=== PATIENT | female | born 1960 | race Caucasian/White ===

== ENCOUNTER 2017-05-27 11:21 | Emergency (ER) | payer OTHER ==
[2017-05-27 11:33] VITALS: BMI 35.5
--- NOTE | 2017-05-27 11:41 | PDOC ---
*Physical Exam - Vital Signs Last Vital Signs Temp Pulse Resp BP Pulse Ox 97.9 F 85 18 143/98 98 05/27/17 11:31 05/27/17 11:31 05/27/17 11:31 05/27/17 11:31 05/27/17 11:31 - Physical Exam Comments: 05/27/17 11:41 Pt seen by the Advanced Practice Provider under my direct supervision Pt interviewed and examined Ancillary studies reviewed I agree with plan as outlined by the Advanced Practice Provider ED Treatment Course - LABORATORY CBC & Chemistry Diagram: 05/27/17 11:50 05/27/17 11:50 *DC/Admit/Observation/Transfer Diagnosis at time of Disposition: Umbilical hernia, Abdominal pain - Discharge Dispostion Disposition: HOME Condition at time of disposition: Stable - Referrals Referrals: Samuel Fuentes MD [Staff Physician] - Julius Faulkner MD [Staff Physician] - Elsy Sauceda [Primary Care Provider] - - Patient Instructions Printed Discharge Instructions: DI for Abdominal Pain-Adult, Abdominal Hernia Additional Instructions: Rest Follow up with your physician and the casting machine adjuster listed on your discharge, Return to the ER for severe/persistent/worsening symptoms
--- NOTE | 2017-05-27 11:47 | PDOC ---
History of Present Illness - General Chief Complaint: Constipation Stated Complaint: ABD PAIN Time Seen by Provider: 05/27/17 11:40 History Source: Patient Exam Limitations: No Limitations - History of Present Illness Travel History: No Initial Comments: 05/27/17 11:45 56-year-old female with a history of IDDM, hypothyroidism, hyperlipidemia presents to the emergency department complaining of periumbilical abdominal pains 4 months. Pain is described as 7/10 dull diffuse nonradiating intermittent discomfort. The pain is exacerbated on touch and there are no alleviating factors. The pain is associated with some nausea but denies vomiting. Patient denies fever, chills, chest pain, shortness of breath, flank pains, urinary symptoms: Frequency/urgency/hesitancy, hematuria. Patient was seen by her PMD times one week ago and was advised to come to the emergency department but patient states she was busy until today. Patient's last bowel movement was 4 hours ago with normal consistency/amounts and denies seeing any blood Timing/Duration: reports: intermittent Quality: reports: moderate Abdominal Pain Onset Location: reports: generalized abdomen Pain Radiation: reports: no radiation Aggravating Factors: improves with: Defecation Alleviating Factors: improves with: None Past History - Past Medical History Allergies/Adverse Reactions: Allergies Allergy/AdvReac Type Severity Reaction Status Date / Time No Known Allergies Allergy Verified 05/27/17 11:33 Home Medications: Ambulatory Orders Atorvastatin Ca [Lipitor] 40 mg PO HS 12/28/13 Levothyroxine [Synthroid -] 150 mcg PO DAILY 12/28/13 Enalapril Maleate 2.5 mg PO DAILY 05/27/17 Metformin HCl 500 mg PO DAILY 05/27/17 Diabetes: Yes HTN: Yes Hypercholesterolemia: Yes Seizures: Yes (HYPO) Thyroid Disease: Yes (hypothyroidism) - Immunization History Immunization Up to Date: No - Psycho/Social/Smoking Cessation Hx Anxiety: No Suicidal Ideation: No Smoking History: Never smoked Have you smoked in the past 12 months: No Number of Cigarettes Smoked Daily: 0 If you are a former smoker, when did you quit?: 10 years ago Information on smoking cessation initiated: No Hx Alcohol Use: No Drug/Substance Use Hx: No Substance Use Type: None Review of Systems - Review of Systems Able to Perform ROS?: Yes Comments:: 05/27/17 11:44 CONSTITUTIONAL: Absent: fever, chills, diaphoresis, generalized weakness, malaise, loss of appetite HEENT: Absent: rhinorrhea, nasal congestion, throat pain, throat swelling, difficulty swallowing, mouth swelling, ear pain, eye pain, visual Changes CARDIOVASCULAR: Absent: chest pain, loss of consciousness, palpitations, irregular heart rate, peripheral edema RESPIRATORY: Absent: cough, shortness of breath, dyspnea with exertion, orthopnea, wheezing, stridor, hemoptysis GASTROINTESTINAL: +diffuse abd pain with nausea Absent: abdominal distension, vomiting, diarrhea, constipation, melena, hematochezia GENITOURINARY: Absent: dysuria, frequency, urgency, hesitancy, hematuria, flank pain, genital pain MUSCULOSKELETAL: Absent: myalgia, arthralgia, joint swelling SKIN: Absent: rash, itching, pallor HEMATOLOGIC/IMMUNOLOGIC: Absent: easy bleeding, easy bruising, lymphadenopathy, frequent infections ENDOCRINE: Absent: unexplained weight gain, unexplained weight loss, heat intolerance, cold intolerance NEUROLOGIC: Absent: headache, focal weakness or paresthesias, dizziness, unsteady gait, seizure, mental status changes, bladder or bowel incontinence PSYCHIATRIC: Absent: anxiety, depression, suicidal or homicidal ideation, hallucinations. Is the patient limited Slovenian proficient: No *Physical Exam - Vital Signs Last Vital Signs Temp Pulse Resp BP Pulse Ox 97.9 F 85 18 143/98 98 05/27/17 11:31 05/27/17 11:31 05/27/17 11:31 05/27/17 11:31 05/27/17 11:31 - Physical Exam Comments: 05/27/17 11:45 GENERAL: Well developed, well nourished. Awake and alert. No acute distress. HEENT: Normocephalic, atraumatic. PERRLA, EOMI. No conjunctival pallor. Sclera are non- icteric. Moist mucous membranes. Oropharynx is clear. NECK: Supple. Full ROM. No JVD. Carotid pulses 2+ and symmetric, without bruits. No thyromegaly. No lymphadenopathy. CARDIOVASCULAR: Regular rate and rhythm. No murmurs, rubs, or gallops. Distal pulses are 2+ and symmetric. PULMONARY: No evidence of respiratory distress. Lungs clear to auscultation bilaterally. No wheezing, rales or rhonchi. ABDOMINAL: +DIFFUSE ABD PAIN on light palp Soft. Non-distended. No rebound or guarding. No organomegaly. Normoactive bowel sounds. MUSCULOSKELETAL Normal range of motion at all joints. No bony deformities or tenderness. No CVA tenderness. EXTREMITIES: No cyanosis. No clubbing. No edema. No calf tenderness. SKIN: Warm and dry. Normal capillary refill. No rashes. No jaundice. NEUROLOGICAL: Alert, awake, appropriate. Cranial nerves 2-12 intact. No deficits to light touch and temperature in face, upper extremities and lower extremities. No motor deficits in the in face, upper extremities and lower extremities. Normoreflexic in the upper and lower extremities. Normal speech. Toes are down- going bilaterally. Gait is normal without ataxia. PSYCHIATRIC: Cooperative. Good eye contact. Appropriate mood and affect. ED Treatment Course - LABORATORY CBC & Chemistry Diagram: 05/27/17 11:50 05/27/17 11:50 - RADIOLOGY Radiograph Interpretation: 05/27/17 15:14 CAT scan abdomen and pelvis with by mouth and IV contrast shows impression: A few tiny diverticula in the sigmoid colon and possibly in the distal descending colon without evidence of acute diverticulitis. Normal-appearing terminal ileum and appendix. There is no evidence of small bowel structure or enlarged lymph nodes. Tiny fat and fluid containing umbilical hernia. *DC/Admit/Observation/Transfer Diagnosis at time of Disposition: Umbilical hernia Qualifiers: Obstruction and gangrene presence: without obstruction or gangrene Qualified Code(s): K42.9 - Umbilical hernia without obstruction or gangrene Abdominal pain Qualifiers: Abdominal location: periumbilical Qualified Code(s): R10.33 - Periumbilical pain - Discharge Dispostion Disposition: HOME Condition at time of disposition: Stable Admit: No - Referrals Referrals: Julius Faulkner MD [Staff Physician] - Elsy Sauceda [Primary Care Provider] - Samuel Fuentes MD [Staff Physician] - - Patient Instructions Printed Discharge Instructions: Abdominal Hernia, DI for Abdominal Pain-Adult Additional Instructions: Rest Follow up with your physician and the maintenance painter apprentice listed on your discharge, Return to the ER for severe/persistent/worsening symptoms
[2017-05-27] MEDS ORDERED: SODIUM CHLORIDE 1,000 ML IV SCH (12:00)
[2017-05-27 12:07] LABS: BASOPHIL 0.7 % (0-2.0); EOSINOPHIL 4.5 % (0-4.5); MCH 27.6 pg (25.7-33.7); MEAN CELL VOLUME 83.5 fl (80-96); MEAN PLT VOLUME 8.7 fl (7.5-11.1); NEUTROPHILS 60.6 % (42.8-82.8); PLATELET COUNT 274 K/MM3 (134-434); RDW 14.5 % (11.6-15.6); WHITE BLOOD COUNT 6.9 K/mm3 (4.0-10.0)
[2017-05-27 12:28] LABS: ALBUMIN 3.9 g/dl (3.4-5.0); AMYLASE 49 U/L (25-115); ANION GAP 7 (8-16); BILIRUBIN,TOTAL 0.2 mg/dL (0.2-1.0); CO2 29 mmol/L (21-32); CREATININE 0.7 mg/dL (0.55-1.02); GLUCOSE,RANDOM 130 mg/dL (74-106); SGOT/AST 15 U/L (15-37); SGPT/ALT 26 U/L (12-78); TOT PROT 7.2 g/dl (6.4-8.2)
[2017-05-27 12:29] LABS: ALK PHOS 87 U/L (45-117)
[2017-05-27 12:36] LABS: URINE APPEARANCE SLCLOUDY; URINE BILIRUBIN NEGATIVE (NEGATIVE); URINE BLOOD NEGATIVE (NEGATIVE); URINE COLOR LTYELLOW; URINE GLUCOSE (UA) NEGATIVE (NEGATIVE); URINE KETONE NEGATIVE (NEGATIVE); URINE LEUK ESTERASE NEGATIVE (NEGATIVE); URINE NITRITE NEGATIVE (NEGATIVE); URINE PROTEIN NEGATIVE (NEGATIVE); URINE UROBILINOGEN NEGATIVE E.U./dl (0.2-1.0)
[2017-05-27 15:19] VITALS: BP 158/95; PULSE 80; TEMP 98.3
== END 2017-05-27 15:53 | disposition home or self-care (01) ==
LOC: JER 11:21
PROC: 3E0337Z Introduction of Electrolytic and Water Balance Substance into Peripheral Vein, Percutaneous Approach (ICD-10-PCS; principal; 2017-05-27)
DX: K42.9 Umbilical hernia without obstruction or gangrene (principal); I10 Essential (primary) hypertension; E11.9 Type 2 diabetes mellitus without complications; Z79.84 Long term (current) use of oral hypoglycemic drugs; E03.9 Hypothyroidism, unspecified; E78.00 Pure hypercholesterolemia, unspecified
CPT/HCPCS: 36415; 74177-TC; 80053; 81003; 82150; 83690; 85025; 99282-25

== ENCOUNTER 2018-04-15 14:54 | Emergency (ER) | payer OTHER ==
[2018-04-15 15:17] VITALS: TEMP 98.2; BMI 35.5
--- NOTE | 2018-04-15 15:17 | PDOC ---
Rapid Medical Evaluation Time Seen by Provider: 04/15/18 15:08 Medical Evaluation: Allergies Allergy/AdvReac Type Severity Reaction Status Date / Time No Known Allergies Allergy Verified 05/27/17 11:33 04/15/18 15:16 I have performed a brief in-person evaluation of this patient. The patient presents with a chief complaint of:told to come in for "anemia on labs done yesterday in pmd's office. No acute symptoms. H/o DM, HLD, hypothyroid Pertinent physical exam findings:stable I have ordered the following:labs The patient will proceed to the ED for further evaluation. Discharge Disposition - Diagnosis Abnormal laboratory test - Referrals - Patient Instructions - Post Discharge Activity
[2018-04-15 15:56] LABS: BASO % 0.5 % (0-2.0); EOS % 3.5 % (0-4.5); HEMATOCRIT 39.3 % (32.4-45.2); HEMOGLOBIN 12.7 GM/dL (10.7-15.3); LYMPH % 27.5 % (8-40); MCH 26.9 pg (25.7-33.7); MCHC 32.4 g/dl (32.0-36.0); MEAN CELL VOLUME 82.8 fl (80-96); MONO % 6.9 % (3.8-10.2); NEUT % 61.6 % (42.8-82.8); PLATELET COUNT 256 K/MM3 (134-434); RBC 4.74 M/mm3 (3.60-5.2); RDW 13.8 % (11.6-15.6); WHITE BLOOD COUNT 6.3 K/mm3 (4.0-10.0)
[2018-04-15 16:14] LABS: INR 1.01 (0.82-1.09); PROTHROMBIN TIME (PATIENT) 11.4 SEC (9.7-13.0)
[2018-04-15 16:47] LABS: ALBUMIN 3.9 g/dl (3.4-5.0); ALK PHOS 94 U/L (45-117); ANION GAP 8 (8-16); BILIRUBIN,TOTAL 0.2 mg/dL (0.2-1.0); BLOOD UREA NITROGEN 15 mg/dL (7-18); CALCIUM 8.8 mg/dL (8.5-10.1); CHLORIDE 108 mmol/L (98-107); CO2 26 mmol/L (21-32); CREATININE 0.8 mg/dL (0.55-1.02); GLUCOSE,RANDOM 127 mg/dL (74-106); POTASSIUM 4.1 mmol/L (3.5-5.1); SGOT/AST 13 U/L (15-37); SGPT/ALT 26 U/L (12-78); SODIUM 142 mmol/L (136-145); TOT PROT 7.1 g/dl (6.4-8.2)
[2018-04-15 17:29] LABS: URINE APPEARANCE CLEAR; URINE BILIRUBIN NEGATIVE (<2.0 mg/dL); URINE COLOR YELLOW; URINE GLUCOSE (UA) NEGATIVE (NEGATIVE); URINE KETONE NEGATIVE (NEGATIVE); URINE LEUK ESTERASE NEGATIVE (NEGATIVE); URINE NITRITE NEGATIVE (NEGATIVE); URINE PROTEIN NEGATIVE (NEGATIVE); URINE UROBILINOGEN NORMAL mg/dL (0.2-1.0)
--- NOTE | 2018-04-15 17:53 | PDOC ---
History of Present Illness <Marilynn Montez - Last Filed: 04/15/18 17:50> - General History Source: Patient Exam Limitations: No Limitations - History of Present Illness Initial Comments: 04/15/18 17:59 The patient is a year old female with past medical history of DM, HLD, hypothyroid was sent in to the emergency department by her PMD. The patient reports she has a blood work done yesterday, the result showed that she had low hemoglobin. Denies any headache, chest pain, sob. Denies nausea, vomiting, diarrhea or constipation. Denies any urinary pain or problems. Denies any abdominal pain. Allergies: NKDA Surgical history: None reported Social history: Patient denies PCP: Dr. Solo <Mei Ley - Last Filed: 04/15/18 18:03> - General Chief Complaint: Revisit, Lab Variance Stated Complaint: LAB VARIANCE (PCP SENT) Time Seen by Provider: 04/15/18 15:08 Past History - Past Medical History COPD: No Diabetes: Yes HTN: Yes Hypercholesterolemia: Yes Seizures: Yes (HYPO) Thyroid Disease: Yes (hypothyroidism) - Immunization History Immunization Up to Date: No - Suicide/Smoking/Psychosocial Hx Smoking History: Never smoked Have you smoked in the past 12 months: No Number of Cigarettes Smoked Daily: 0 If you are a former smoker, when did you quit?: 10 years ago Hx Alcohol Use: No Drug/Substance Use Hx: No Substance Use Type: None <Marilynn Montez - Last Filed: 04/15/18 17:50> <Mei Ley - Last Filed: 04/15/18 18:03> - Past Medical History Allergies/Adverse Reactions: Allergies Allergy/AdvReac Type Severity Reaction Status Date / Time No Known Allergies Allergy Verified 05/27/17 11:33 Home Medications: Ambulatory Orders Atorvastatin Ca [Lipitor] 40 mg PO HS 12/28/13 Levothyroxine [Synthroid -] 150 mcg PO DAILY 12/28/13 Enalapril Maleate 2.5 mg PO DAILY 05/27/17 Metformin HCl 500 mg PO DAILY 05/27/17 Review of Systems - Review of Systems Able to Perform ROS?: Yes Comments:: 04/15/18 18:02 GENERAL/CONSTITUTIONAL: No fever or chills. No weakness. HEAD, EYES, EARS, NOSE AND THROAT: No change in vision. No ear pain or discharge. No sore throat. CARDIOVASCULAR: No chest pain or shortness of breath. RESPIRATORY: No cough, wheezing, or hemoptysis. GASTROINTESTINAL: No nausea, vomiting, diarrhea or constipation. GENITOURINARY: No dysuria, frequency, or change in urination. MUSCULOSKELETAL: No joint or muscle swelling or pain. No neck or back pain. SKIN: No rash NEUROLOGIC: No headache, vertigo, loss of consciousness, or change in strength/ sensation. ENDOCRINE: No increased thirst. No abnormal weight change. HEMATOLOGIC/LYMPHATIC: No anemia, easy bleeding, or history of blood clots. ALLERGIC/IMMUNOLOGIC: No hives or skin allergy. <Mei Ley - Last Filed: 04/15/18 18:03> *Physical Exam - Vital Signs Last Vital Signs Temp Pulse Resp BP Pulse Ox 98.2 F 91 H 20 155/90 99 04/15/18 15:15 04/15/18 15:15 04/15/18 15:15 04/15/18 15:15 04/15/18 15:15 <Marilynn Montez - Last Filed: 04/15/18 17:50> - Vital Signs Last Vital Signs Temp Pulse Resp BP Pulse Ox 98.2 F 91 H 20 155/90 99 04/15/18 15:15 04/15/18 15:15 04/15/18 15:15 04/15/18 15:15 04/15/18 15:15 - Physical Exam Comments: 04/15/18 18:02 GENERAL: Awake, alert, and fully oriented, in no acute distress HEAD: No signs of trauma EYES: PERRLA, EOMI, sclera anicteric, conjunctiva clear ENT: Auricles normal inspection, hearing grossly normal, nares patent, oropharynx clear without exudates. Moist mucosa NECK: Normal ROM, supple, no lymphadenopathy, JVD, or masses LUNGS: Breath sounds equal, clear to auscultation bilaterally. No wheezes, and no crackles HEART: Regular rate and rhythm, normal S1 and S2, no murmurs, rubs or gallops ABDOMEN: Soft, nontender, normoactive bowel sounds. No guarding, no rebound. No masses EXTREMITIES: Normal range of motion, no edema. No clubbing or cyanosis. No cords, erythema, or tenderness NEUROLOGICAL: Cranial nerves II through XII grossly intact. Normal speech, normal gait SKIN: Warm, Dry, normal turgor, no rashes or lesions noted. <Mei Ley - Last Filed: 04/15/18 18:03> ED Treatment Course - LABORATORY CBC & Chemistry Diagram: 04/15/18 15:30 04/15/18 15:30 - ADDITIONAL ORDERS Additional order review: Laboratory Results 04/15/18 04/15/18 04/15/18 15:39 15:30 15:30 PT with INR INR Sodium Potassium Chloride Carbon Dioxide Anion Gap BUN Creatinine Creat Clearance w eGFR Random Glucose Calcium Total Bilirubin AST ALT Alkaline Phosphatase Total Protein Albumin Beta HCG, Quant 2.5 Urine Color Yellow Urine Appearance Clear Urine pH 5.0 Ur Specific [place] 1.015 Urine Protein Negative Urine Glucose (UA) Negative Urine Ketones Negative Urine Blood Negative Urine Nitrite Negative Urine Bilirubin Negative Urine Urobilinogen Normal Ur Leukocyte Esterase Negative Blood Type A POSITIVE Antibody Screen Negative 04/15/18 04/15/18 15:30 15:30 PT with INR 11.40 INR 1.01 Sodium 142 Potassium 4.1 Chloride 108 H Carbon Dioxide 26 Anion Gap 8 BUN 15 Creatinine 0.8 Creat Clearance w eGFR > 60 Random Glucose 127 H Calcium 8.8 Total Bilirubin 0.2 AST 13 L ALT 26 Alkaline Phosphatase 94 Total Protein 7.1 Albumin 3.9 Beta HCG, Quant Urine Color Urine Appearance Urine pH Ur Specific [place] Urine Protein Urine Glucose (UA) Urine Ketones Urine Blood Urine Nitrite Urine Bilirubin Urine Urobilinogen Ur Leukocyte Esterase Blood Type Antibody Screen 04/15/18 15:30 RBC 4.74 MCV 82.8 MCHC 32.4 RDW 13.8 MPV 9.0 Neutrophils % 61.6 Lymphocytes % 27.5 Monocytes % 6.9 Eosinophils % 3.5 Basophils % 0.5 <Marilynn Montez - Last Filed: 04/15/18 17:50> - LABORATORY CBC & Chemistry Diagram: 04/15/18 15:30 04/15/18 15:30 - ADDITIONAL ORDERS Additional order review: Laboratory Results 04/15/18 04/15/18 04/15/18 15:39 15:30 15:30 PT with INR INR Sodium Potassium Chloride Carbon Dioxide Anion Gap BUN Creatinine Creat Clearance w eGFR Random Glucose Calcium Total Bilirubin AST ALT Alkaline Phosphatase Total Protein Albumin Beta HCG, Quant 2.5 Urine Color Yellow Urine Appearance Clear Urine pH 5.0 Ur Specific [place] 1.015 Urine Protein Negative Urine Glucose (UA) Negative Urine Ketones Negative Urine Blood Negative Urine Nitrite Negative Urine Bilirubin Negative Urine Urobilinogen Normal Ur Leukocyte Esterase Negative Blood Type A POSITIVE Antibody Screen Negative 04/15/18 04/15/18 15:30 15:30 PT with INR 11.40 INR 1.01 Sodium 142 Potassium 4.1 Chloride 108 H Carbon Dioxide 26 Anion Gap 8 BUN 15 Creatinine 0.8 Creat Clearance w eGFR > 60 Random Glucose 127 H Calcium 8.8 Total Bilirubin 0.2 AST 13 L ALT 26 Alkaline Phosphatase 94 Total Protein 7.1 Albumin 3.9 Beta HCG, Quant Urine Color Urine Appearance Urine pH Ur Specific [place] Urine Protein Urine Glucose (UA) Urine Ketones Urine Blood Urine Nitrite Urine Bilirubin Urine Urobilinogen Ur Leukocyte Esterase Blood Type Antibody Screen 04/15/18 15:30 RBC 4.74 MCV 82.8 MCHC 32.4 RDW 13.8 MPV 9.0 Neutrophils % 61.6 Lymphocytes % 27.5 Monocytes % 6.9 Eosinophils % 3.5 Basophils % 0.5 <Mei Ley - Last Filed: 04/15/18 18:03> Medical Decision Making - Medical Decision Making 04/15/18 17:50 a/p: 57yo female sent by Dr. Solo for low H/H on outpt labs yesterday -states hct was 21 on outpt labs -pt denies all complaints -repeat labs shows 12.7 hgb -no complaints of bleeding -case discussed with Dr. Solo - will d/c to home to follow up with dr. sloo as an outpt -suspect yesterday labs were error -discussed all reasons to return to the ED and need for follow up. <Marilynn Montez - Last Filed: 04/15/18 17:50> - Medical Decision Making 04/15/18 18:00 Dr. Solo was called at 5:49 pm, the new lab results were discussed with him. 04/15/18 18:03 Documentation prepared by Mei Ley, acting as medical office administrator for Marilynn Montez DO. <Mei Ley - Last Filed: 04/15/18 18:03> *DC/Admit/Observation/Transfer - Discharge Dispostion Decision to Admit order: No - Attestations Physician Attestion: 04/15/18 17:52 I, Dr. Marilynn Montez, DO, attest that this document has been prepared under my direction and personally reviewed by me in its entirety. I further attest, that it accurately reflects all work, treatment, procedures and medical decision -making performed by me. <Marilynn Montez - Last Filed: 04/15/18 17:50> <Mei Ley - Last Filed: 04/15/18 18:03> Diagnosis at time of Disposition: Abnormal laboratory test, Well adult exam - Discharge Dispostion Disposition: HOME Condition at time of disposition: Stable - Referrals Referrals: Elsy Solo [Primary Care Provider] - - Patient Instructions Printed Discharge Instructions: General Wellness (Alternative Therapy) Additional Instructions: Please follow up with Dr. Solo as discussed. Please return to the ED with any further concerns or complaints. - Post Discharge Activity
[2018-04-15 18:11] VITALS: BP 140/69; PULSE 70
== END 2018-04-15 18:14 | disposition home or self-care (01) ==
LOC: JER 14:54
DX: Z00.00 Encounter for general adult medical examination without abnormal findings (principal); R79.9 Abnormal finding of blood chemistry, unspecified; E11.9 Type 2 diabetes mellitus without complications; E78.5 Hyperlipidemia, unspecified; E03.9 Hypothyroidism, unspecified; I10 Essential (primary) hypertension; Z87.891 Personal history of nicotine dependence
CPT/HCPCS: 36415; 80053; 81003; 84702; 85025; 85610; 86850; 86900; 86901; 99282-25

== ENCOUNTER 2018-07-28 09:23 | Day surgery (SDC) | payer OTHER ==
[2018-07-28 09:57] VITALS: BMI 39.9
[2018-07-28 10:53] VITALS: TEMP 98.3
[2018-07-28 11:20] VITALS: PULSE 80
[2018-07-28 12:16] VITALS: BP 139/62
== END 2018-07-28 12:16 | disposition home or self-care (01) ==
LOC: JASU-ENDO 09:23
PROVIDERS: ATTEND Internal Medicine Gastroenterology
PROC: 0DJD8ZZ Inspection of Lower Intestinal Tract, Via Natural or Artificial Opening Endoscopic (ICD-10-PCS; principal; 2018-07-28 10:30)
DX: Z12.11 Encounter for screening for malignant neoplasm of colon (principal); K57.30 Diverticulosis of large intestine without perforation or abscess without bleeding; E03.9 Hypothyroidism, unspecified; E11.9 Type 2 diabetes mellitus without complications; E78.5 Hyperlipidemia, unspecified
CPT/HCPCS: 82962

== ENCOUNTER 2019-11-23 14:41 | Emergency (ER) | payer OTHER ==
[2019-11-23 14:54] VITALS: BMI 33.7
--- NOTE | 2019-11-23 15:11 | PDOC ---
History of Present Illness - General Chief Complaint: Pain Stated Complaint: SENT BY DOCTOR Time Seen by Provider: 11/23/19 15:10 Past History - Past Medical History Allergies/Adverse Reactions: Allergies Allergy/AdvReac Type Severity Reaction Status Date / Time No Known Allergies Allergy Verified 11/23/19 14:51 Home Medications: Ambulatory Orders Atorvastatin Ca [Lipitor] 40 mg PO HS 12/28/13 Levothyroxine [Synthroid -] 150 mcg PO DAILY 12/28/13 Enalapril Maleate 2.5 mg PO DAILY 05/27/17 metFORMIN HCL [Metformin HCl] 500 mg PO DAILY 05/27/17 Albuterol Sulfate Inhaler - [Ventolin Hfa Inhaler -] 1 - 2 inh PO QID PRN #1 inhaler 11/23/19 COPD: No Diabetes: Yes (NIIDM) HTN: Yes Hypercholesterolemia: Yes Seizures: Yes (HYPO) Thyroid Disease: Yes (hypothyroidism) - Immunization History Immunization Up to Date: No - Psycho Social/Smoking Cessation Hx Smoking History: Never smoked Have you smoked in the past 12 months: No Number of Cigarettes Smoked Daily: 0 If you are a former smoker, when did you quit?: 10 years ago Hx Alcohol Use: No Drug/Substance Use Hx: No Substance Use Type: None *Physical Exam - Vital Signs Last Vital Signs Temp Pulse Resp BP Pulse Ox 98.2 F 114 H 17 183/84 H 98 11/23/19 14:52 11/23/19 14:52 11/23/19 14:52 11/23/19 14:52 11/23/19 14:52 ED Treatment Course - LABORATORY CBC & Chemistry Diagram: 11/23/19 16:00 11/23/19 16:00 Medical Decision Making - Medical Decision Making 11/23/19 16:15 HPI: 58yo F hx IDDM, HLD, and hypothyroidism presents sent by PCP for evaluation of 1 day of productive cough, nausea, chills, rhinorrhea, congestion, b/l ear pain R>L, dysuria, increased urinary frequency/urgency, and epigastric/chest pressure only when coughs. From 11/19-11/21, pt had nausea, NBNB emesis x15, NB watery diarrhea xfew, and diffuse abdominal pain, all resolved. Returned to [facility] yesterday. Today woke up at 0330 with multiple sx as above. Chest pain is upper chest/throat, pressure type, radiates to epigastric area, only occurs when coughs, no hx similar sx. Pt took Tylenol x2 and Maalox at 0430 without improvement. States diarrhea and vomiting have resolved, but still a little nauseous. Pt is able to eat and drink a little today and keep down. Pt has hx of ear infections, last one 1mo ago, and pt still had a few unknown antibiotics left over so took 1 last PM and 1 this AM in case it would help, without improvement. Works at [employer], no sick contacts at home. Denies recent travel. Denies difficulty swallowing, myalgias, tinnitus, fatigue, headache, vertigo, numbness/tingling, focal weakness, vision changes, shortness of breath , chest pain, palpitations, leg swelling, blood in stool, constipation, hematuria, confusion. PCP - Sun ROS: Constitutional: Positive for chills, fever. Negative for fatigue, diaphoresis. HENT: Positive for sore throat, rhinorrhea, congestion. Eyes: Negative for visual disturbance. Respiratory: Positive for cough. Negative for shortness of breath, and wheezing. Cardiovascular: Positive for chest pain. Negative for palpitations, and leg swelling. Gastrointestinal: Positive for abdominal pain, diarrhea, nausea, and vomiting. Negative for blood in stool, constipation. Genitourinary: Positive for dysuria, frequency, urgency. Negative for flank pain , and hematuria. Musculoskeletal: Negative for myalgias, back pain, and neck pain. Skin: Negative for rash. Neurological: Positive for light-headedness. Negative for vertigo, syncope, weakness, numbness and headaches. Psychiatric/Behavioral: Negative for behavioral problems and confusion. PE: Gen: Alert, NAD, comfortable-appearing. HEENT: PERRL, EOMI, MMM, NCAT. No conjunctival pallor. Sclera are non-icteric. Oropharynx is clear. Neck supple. Normal external canal and TM of R ear. Minimal erythema and TM bulging of L TM without purulence or fluid, +pain with tugging of ear, no TTP mastoid or pinna. CV: Regular rate and rhythm. No murmurs, rubs, or gallops. Minimal exudate of L tonsil without uvular deviation or edema or erythema. PULM: No resp distress. CTAB, no wheezes, rales, or rhonchi. ABD: soft, NT/ND, no rebound tenderness or guarding, no CVA tenderness. BACK: No TTP of c/t/l-spine. No step-offs or deformities. MSK: No bony deformities. 2+ pulses in all extremities. NEURO: AAOx3. PERRL. No gross CN deficits. Strength and sensation grossly intact throughout. EXTREMITIES: No cyanosis. No clubbing. No edema. No calf tenderness. PSYCH: Normal mood and thought pattern. SKIN: Warm and dry. Normal capillary refill. No rashes. No jaundice. MDM: 58yo F hx IDDM, HLD, and hypothyroidism presents sent by PCP for evaluation of 1 day of productive cough, nausea, chills, rhinorrhea, congestion, b/l ear pain R>L, dysuria, increased urinary frequency/urgency, and epigastric/chest pressure only when coughs. In [facility] yesterday, but from 11/19-11/21, pt also had vomiting, diarrhea, and abdominal pain, all resolved. Tachycardic, BP 183/84, other VSS, afebrile, benign abdomen, minimal exudate of L tonsil without uvular deviation or edema, minimal erythema and TM bulging of L TM. Ddx: influenza, URI, PNA, less likely ACS/TX (HEART score 2), EOM, external otitis, strep pharyngitis, viral pharyngitis, GERD, reflux, PUD, viral gastroenteritis, UTI, metabolic derangement, anemia. Low concern for emergent GI pathology due to resolution of vomiting, diarrhea and abdominal pain, and benign abdomen exam. -EKG -CXR -CBC,CMP,Mg,Phos,Coags,Cardiac profile,Lipase,UA/UC,Influenza,Strep -Zofran,Tylenol,Pepcid,IVF -Dispo: pending w/u 11/23/19 16:49 EKG reviewed: sinus tachycardia with fusion complexes, 108bpm, RBBB, L anterior fascicular block, bifascicular block, LVH with repolarization abnormality, QTc 495ms, TWIs in V2, no ST elevations or depressions. When compared with 08/25/19, sinus tachycardia has replaced normal sinus rhythm. CXR reviewed: no acute chest pathology. Degenerative changes with wedging. 11/23/19 18:14 Labs reviewed. Pt feeling much better and feels good to go home. Will dc home with PCP f/u and Ventolin rx. Return precautions given. Pt understands all dc instructions and all questions were answered. Discharge - Discharge Information Problems reviewed: Yes Clinical Impression/Diagnosis: Flu syndrome Condition: Improved Disposition: HOME - Admission No - Additional Discharge Information Prescriptions: Albuterol Sulfate Inhaler - [Ventolin Hfa Inhaler -] 1 - 2 inh PO QID PRN #1 inhaler PRN Reason: Cough - Follow up/Referral Referrals: Elsy Sauceda [Primary Care Provider] - - Patient Discharge Instructions Additional Instructions: You have been seen in the Emergency Department today. Your EKG, labs, and chest X-ray show no signs of an emergent condition. You most likely have the flu or another viral infection. You do not need antibiotics at this time. It's most important to stay hydrated with lots of fluids. Also take Tylenol every 6 hours for 2-3 days to help with the fever. Follow up with your primary care doctor within 1 week. Return to the Emergency Department immediately for any new or worsening symptoms including worsening of your condition, difficulty breathing, high fever , or inability to keep down fluids. - Post Discharge Activity Work/Back to School Note: Back to Work
[2019-11-23] MEDS ORDERED: FAMOTIDINE 20 MG/50 ML IVPB 20 MG/50 ML MG IVPB ONE ×2 (15:37→16:13)
[2019-11-23] MEDS ORDERED: ONDANSETRON 4 MG/2 ML VIAL IVPUSH ONE (15:37)
[2019-11-23] MEDS ORDERED: SODIUM CHLORIDE 0.9% 500 ML INFUS.BAG IV ONE (15:37)
[2019-11-23] MEDS ORDERED: ACETAMINOPHEN 500 MG TABLET (FP) PO ONE (15:37)
[2019-11-23] MEDS ORDERED: ACETAMINOPHEN 1000 MG/100 ML VIAL (NON FORMULARY) IVPB ONE (16:00)
[2019-11-23] MEDS ORDERED: ACETAMINOPHEN INJECTION 100 ML IVPB ONE (16:12)
[2019-11-23] MEDS ORDERED: ONDANSETRON 4 MG/2 ML VIAL ONE (16:12)
--- NOTE | 2019-11-23 16:44 | PDOC ---
Attending Attestation - Resident Resident Name: Becky Kang - ED Attending Attestation I have performed the following: I have examined & evaluated the patient, The case was reviewed & discussed with the resident, I agree w/resident's findings & plan, Exceptions are as noted - HPI HPI: 11/23/19 18:16 58 years old with past medical history significant for thyroid disease non- insulin-dependent diabetes high cholesterol presents to the emergency department with 2 to 3-day history of flulike symptoms. Symptoms started with nausea vomiting diarrhea over the last 2 days and now has changed to runny nose cough congestion earache and sore throat with chills and body aches Symptoms are mild to moderate persistent constant patient has not received her flu shot No travel, multiple sick contacts, no recent surgeries - Physicial Exam PE: 11/23/19 18:16 Vitals: Triage Vital signs reviewed General Appearance: No acute distress, well nourished well developed, Head: Atraumatic, Eyes: Pupils equal reactive round, extraocular movement intact Throat: Posterior oropharynx without erythema, mucous membranes moist, Neck: Supple; no Nucal rigidity Chest Wall: Nontender Cardiac: Regular rate and rhythym, no murmurs, no rubs, no gallops, Lungs: Clear to auscultation bilateral, good air movement bilaterally, Abdomen: Soft, non distended, normal bowel sounds, non tender to palpation Extremities: Full range of motion to all extremities, no cyanosis, clubbing, or edema Skin: Warm and dry, no rashes or lesions, no rash, no petechiae Psych: Normal mood, normal affect - Medical Decision Making History and examination consistent with flulike illness we will check labs hydrate IV Tylenol observe and reassess 1 DuoNeb ordered for cough and congestion Chest x-ray demonstrates no focal infiltrate Laboratory analysis within normal limits Despite negative flu swab, clinically patient appears to be flulike illness discussed pros and cons of Tamiflu with patient given recent nausea vomiting and incidence of adverse effect of nausea vomiting with Tamiflu patient does not want Tamiflu at this time she will follow-up with her doctor in 1 to 2 weeks status post IV fluids Tylenol and 1 DuoNeb patient feels much better tolerating fluids asking to go home we will prescribe Ventolin MDI for cough she will return to the ED for any severe worsening symptoms. Findings, the need for follow-up and strict return instructions discussed with patient.
[2019-11-23 16:45] LABS: BASO % 0.4 % (0-2.0); EOS % 1.8 % (0-4.5); HEMATOCRIT 41.1 % (32.4-45.2); HEMOGLOBIN 13.5 GM/dL (10.7-15.3); LYMPH % 7.5 % (8-40); MCH 27.7 pg (25.7-33.7); MCHC 32.7 g/dl (32.0-36.0); MEAN CELL VOLUME 84.7 fl (80-96); MEAN PLT VOLUME 9.4 fl (7.5-11.1); NEUT % 83.3 % (42.8-82.8); PLATELET COUNT 273 K/MM3 (134-434); RBC 4.85 M/mm3 (3.60-5.2); RDW 13.3 % (11.6-15.6); WHITE BLOOD COUNT 6.8 K/mm3 (4.0-10.0)
[2019-11-23 17:01] LABS: INR 0.98 (0.83-1.09); PROTHROMBIN TIME (PATIENT) 11.6 SEC (9.7-13.0)
[2019-11-23 17:13] LABS: ALBUMIN 3.8 g/dl (3.4-5.0); BILIRUBIN,TOTAL 0.3 mg/dL (0.2-1); BLOOD UREA NITROGEN 11.9 mg/dL (7-18); CALCIUM 9.4 mg/dL (8.5-10.1); CREATININE 0.7 mg/dL (0.55-1.3); MAGNESIUM 2.2 mg/dL (1.8-2.4); PHOSPHOROUS 3.5 mg/dL (2.5-4.9)
[2019-11-23 17:17] LABS: PH,URINE 5.5 (5.0-8.0); URINE APPEARANCE CLEAR; URINE BILIRUBIN NEGATIVE (NEGATIVE); URINE COLOR YELLOW; URINE GLUCOSE (UA) NEGATIVE (NEGATIVE); URINE KETONE NEGATIVE (NEGATIVE); URINE LEUK ESTERASE NEGATIVE (NEGATIVE); URINE NITRITE NEGATIVE (NEGATIVE); URINE PROTEIN NEGATIVE (NEGATIVE); URINE UROBILINOGEN 0.2 mg/dL (0.2-1.0)
[2019-11-23] MEDS ORDERED: ALBUTEROL SO4 2.5/IPRATROPIUM 0.5 INH SOL 3 ML VIAL.NEB. NEB ONE ×2 (17:29→17:33)
[2019-11-23 18:00] VITALS: BP 145/93; PULSE 107; TEMP 98.8
--- NOTE | 2019-11-24 17:41 | EKG ---
Test Reason : Blood Pressure : / mmHG Vent. Rate : 108 BPM Atrial Rate : 108 BPM P-R Int : 160 ms QRS Dur : 122 ms QT Int : 370 ms P-R-T Axes : 060 -45 074 degrees QTc Int : 495 ms SINUS TACHYCARDIA WITH FUSION COMPLEXES RIGHT BUNDLE BRANCH BLOCK LEFT ANTERIOR FASCICULAR BLOCK BIFASCICULAR BLOCK LEFT VENTRICULAR HYPERTROPHY WITH REPOLARIZATION ABNORMALITY ABNORMAL ECG WHEN COMPARED WITH ECG OF 25-AUG-2019 07:59, NO SIGNIFICANT CHANGE WAS FOUND Confirmed by GUERRERO DSOUZA MD ([id number]) on 11/24/2019 5:41:40 PM Referred By: Confirmed By:GUERRERO DSOUZA MD
== END 2019-11-23 18:06 | disposition home or self-care (01) ==
LOC: JER 14:41
PROC: 3E0F7GC Introduction of Other Therapeutic Substance into Respiratory Tract, Via Natural or Artificial Opening (ICD-10-PCS; principal; 2019-11-23)
PROC: 3E033NZ Introduction of Analgesics, Hypnotics, Sedatives into Peripheral Vein, Percutaneous Approach (ICD-10-PCS; 2019-11-23)
PROC: 3E033GC Introduction of Other Therapeutic Substance into Peripheral Vein, Percutaneous Approach (ICD-10-PCS; 2019-11-23)
DX: J11.1 Influenza due to unidentified influenza virus with other respiratory manifestations (principal); E11.9 Type 2 diabetes mellitus without complications; I10 Essential (primary) hypertension; E78.00 Pure hypercholesterolemia, unspecified; E03.9 Hypothyroidism, unspecified; R56.9 Unspecified convulsions; Z87.891 Personal history of nicotine dependence
CPT/HCPCS: 36415; 71046-TC-FY; 80053; 81003; 82550; 83690; 83735; 84100; 84484; 85025; 85610; 87070; 87086; 87804; 87880; 93005; 93010; 99283-25; J0131

== ENCOUNTER 2020-02-02 14:24 | Emergency (ER) | payer OTHER ==
[2020-02-02] MEDS ORDERED: ONDANSETRON *ODT* 4 MG TABLET SL ONE (14:32)
--- NOTE | 2020-02-02 14:33 | PDOC ---
Rapid Medical Evaluation Time Seen by Provider: 02/02/20 14:30 Medical Evaluation: Allergies Allergy/AdvReac Type Severity Reaction Status Date / Time No Known Allergies Allergy Verified 11/23/19 14:51 02/02/20 14:30 HPI: Chills x3 days nausea and vomiting with diarrhea today PCP advised ER visit. Has GI appointment tomorrow but cancelled because of acute illness. PE: No gross deficits ORDERS: Zofran 4 mg SL 02/02/20 14:32 02/02/20 14:32 Discharge Disposition - Diagnosis Gastroenteritis - Referrals - Patient Instructions - Post Discharge Activity
[2020-02-02 14:36] VITALS: BP 169/91; PULSE 92; TEMP 98.1; BMI 33.5
[2020-02-02] MEDS ORDERED: ONDANSETRON *ODT* 4 MG TABLET ONE (15:12)
[2020-02-02] MEDS ORDERED: FAMOTIDINE 10 MG TABLET PO ONE (16:16)
--- NOTE | 2020-02-02 16:29 | PDOC ---
History of Present Illness - General Chief Complaint: Vomiting/Diarrhea Stated Complaint: SENT BY PCP/VOMITING DIARRHEA Time Seen by Provider: 02/02/20 14:30 - History of Present Illness Initial Comments: 02/02/20 16:35 59 y.o. M PMH DM, HTN, HLD hypothyroidism, and obesity presenting with generalized weakness, nausea, chills, vomiting and diarrhea x 3 days. Emesis is clear & NBNB. Diarrhea has been present x 3 days, non-bloody, seems to be resolving today. Denies fevers or abdomonal pain. Was able to eat plain pasta today without emesis. Patient has not changed her diet or medication regimen recently. Denies sick contacts. No recent travel. Patient had scheduled outpatient GI appt for EGD tomorrow but came into ED today instead due to current symptoms. Past History - Past Medical History Allergies/Adverse Reactions: Allergies Allergy/AdvReac Type Severity Reaction Status Date / Time No Known Allergies Allergy Verified 02/02/20 14:31 Home Medications: Ambulatory Orders Atorvastatin Ca [Lipitor] 40 mg PO HS 12/28/13 Levothyroxine [Synthroid -] 137 mcg PO DAILY 12/28/13 Enalapril Maleate 10 mg PO DAILY 05/27/17 metFORMIN HCL [Metformin HCl] 850 mg PO BID 05/27/17 Albuterol Sulfate Inhaler - [Ventolin Hfa Inhaler -] 1 - 2 inh PO QID PRN #1 inhaler 11/23/19 Dulaglutide [Trulicity] 0.75 mg IJ ASDIR 02/02/20 COPD: No Diabetes: Yes (NIIDM) HTN: Yes Hypercholesterolemia: Yes Seizures: Yes (HYPO) Thyroid Disease: Yes (hypothyroidism) - Immunization History Immunization Up to Date: No - Psycho Social/Smoking Cessation Hx Smoking History: Unknown if ever smoked Have you smoked in the past 12 months: No Number of Cigarettes Smoked Daily: 0 If you are a former smoker, when did you quit?: 10 years ago Hx Alcohol Use: No Drug/Substance Use Hx: No Substance Use Type: None Review of Systems - Review of Systems Comments:: 02/02/20 16:29 GENERAL/CONSTITUTIONAL: +chills, weakness. HEAD, EYES, EARS, NOSE AND THROAT: No change in vision. No change in hearing. No sore throat. CARDIOVASCULAR: No chest pain or shortness of breath. RESPIRATORY: Nonproductive cough. No hemoptysis. GASTROINTESTINAL: + nausea, vomiting, diarrhea x 3 days GENITOURINARY: No dysuria, frequency, or change in urination. MUSCULOSKELETAL: No joint or muscle swelling or pain. No neck or back pain. SKIN: No rash noted NEUROLOGIC: No headache, vertigo, loss of consciousness, or change in strength/sensation. ENDOCRINE: No increased thirst. No abnormal weight change HEMATOLOGIC/LYMPHATIC: No anemia, easy bleeding, or history of blood clots. ALLERGIC/IMMUNOLOGIC: No hives or skin allergy. *Physical Exam - Vital Signs Last Vital Signs Temp Pulse Resp BP Pulse Ox 98.1 F 92 H 18 169/91 99 02/02/20 14:35 02/02/20 14:35 02/02/20 14:35 02/02/20 14:35 02/02/20 14:35 - Physical Exam HEENT: positive: Normal ENT Inspection, Normal Voice Respiratory/Chest: positive: Lungs Clear, Normal Breath Sounds Cardiovascular: positive: Regular Rhythm, Regular Rate, S1, S2 Gastrointestinal/Abdominal: positive: Normal Bowel Sounds, Soft, Other (Nontender. 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 NML intact, Fully Oriented, Alert, Normal Mood/Affect ED Treatment Course - LABORATORY CBC & Chemistry Diagram: 02/02/20 16:50 02/02/20 16:50 - Medications Given in the ED: ED Medications Discontinued Medications Generic Name Dose Route Start Last Admin Trade Name Freq PRN Reason Stop Dose Admin Ondansetron HCl 4 mg 02/02/20 14:32 02/02/20 15:16 Zofran Odt - SL 02/02/20 14:33 4 mg ONCE ONE Administration Medical Decision Making - Medical Decision Making 02/02/20 17:01 -CBC, CMP ordered -EKG, trop -Pepcid -given zofran for nausea 02/02/20 17:15 EKG: NSR, RBBB, LAD, no ST elevations/ T inversions. qtc 476 Discharge - Discharge Information Problems reviewed: Yes Clinical Impression/Diagnosis: Gastroenteritis Condition: Improved Disposition: HOME - Follow up/Referral Referrals: Elsy Sauceda [Primary Care Provider] - - Patient Discharge Instructions Additional Instructions: You came to the Emergency Department for nausea, vomiting and diarrhea. We chec ked your vitals and bloodwork and did not find any abnormalities. You were treated with IV fluids and subsequently felt better. Please return to the ED if you are experiencing worsening of your symptoms. - Post Discharge Activity Work/Back to School Note: Back to Work
[2020-02-02] MEDS ORDERED: SODIUM CHLORIDE 1,000 ML IV SCH (16:30)
--- NOTE | 2020-02-02 16:42 | PDOC ---
Attending Attestation - Resident Resident Name: Alyse Marley - ED Attending Attestation I have performed the following: I have examined & evaluated the patient, The case was reviewed & discussed with the resident, I agree w/resident's findings & plan, Exceptions are as noted - HPI HPI: 02/02/20 16:59 59yo female with n/v/d x 3 days. Pt states vomiting has diminished, but still nauseated and still having diarrhea. No recent travel or abx. No sick contacts. Pt denies f/c. No cp/sob. No abd pain. States she was able to eat pasta today and has been keeping water down. Pt denies dysuria. No back pain. No sore throat. No other complaints. Pt was scheduled for EGD tomorrow, but cancelled because she came to the Er. - Physicial Exam PE: 02/02/20 17:00 Gen: aaox3, nad heart: +s1s2 reg lungs: cta b/l abd: soft, nt/nd +bs ext: no c/c/e - Medical Decision Making 02/02/20 17:00 a/p: 59yo female with n/v/d x 3 days -pt has been able to tolerate po -pt is dm -will send labs, will hydrate, will give zofran -no abd ttp -will monitor and reassess -if labs ok and nausea controlled will po challenge 02/02/20 18:12 labs reviewed and stable will need GI follow up as outpt will po challenge and dc to home 02/02/20 18:41 pt tolerated po no abd pain stable for dc to home with outpt follow up with GI and her PMD Heart Score/ECG Review - ECG Intrepretation Comment:: 02/02/20 17:14 sinus at 89, l axis, rbbb, lvh, no acute st/t wave findings
[2020-02-02] MEDS ORDERED: FAMOTIDINE 10 MG TABLET ONE (16:48)
[2020-02-02 17:28] LABS: HEMATOCRIT 39.3 % (32.4-45.2); HEMOGLOBIN 12.8 GM/dL (10.7-15.3); MCH 28.2 pg (25.7-33.7); MCHC 32.5 g/dl (32.0-36.0); MEAN CELL VOLUME 86.6 fl (80-96); PLATELET COUNT 316 K/MM3 (134-434); RBC 4.54 M/mm3 (3.60-5.2); RDW 14.3 % (11.6-15.6); WHITE BLOOD COUNT 5.9 K/mm3 (4.0-10.0)
[2020-02-02 17:58] LABS: ALBUMIN 3.9 g/dl (3.4-5.0); ALK PHOS 77 U/L (45-117); ANION GAP 5 MMOL/L (8-16); BILIRUBIN,TOTAL 0.2 mg/dL (0.2-1); BLOOD UREA NITROGEN 14.6 mg/dL (7-18); CALCIUM 8.9 mg/dL (8.5-10.1); CHLORIDE 110 mmol/L (98-107); CO2 27 mmol/L (21-32); CREATININE 0.7 mg/dL (0.55-1.3); GLUCOSE,RANDOM 116 mg/dL (74-106); LIPASE 269 U/L (73-393); POTASSIUM 4.6 mmol/L (3.5-5.1); SGOT/AST 13 U/L (15-37); SGPT/ALT 21 U/L (13-61); SODIUM 142 mmol/L (136-145); TOT PROT 6.8 g/dl (6.4-8.2)
--- NOTE | 2020-02-03 10:27 | EKG ---
Test Reason : Blood Pressure : / mmHG Vent. Rate : 089 BPM Atrial Rate : 089 BPM P-R Int : 148 ms QRS Dur : 126 ms QT Int : 392 ms P-R-T Axes : 046 -41 057 degrees QTc Int : 476 ms NORMAL SINUS RHYTHM LEFT AXIS DEVIATION RIGHT BUNDLE BRANCH BLOCK MODERATE VOLTAGE CRITERIA FOR LVH, MAY BE NORMAL VARIANT ABNORMAL ECG WHEN COMPARED WITH ECG OF 23-NOV-2019 16:22, FUSION COMPLEXES ARE NO LONGER PRESENT Confirmed by REGINA BONE MD ([id number]) on 02/03/2020 10:26:49 AM Referred By: Confirmed By:REGINA BONE MD
== END 2020-02-02 19:05 | disposition home or self-care (01) ==
LOC: JER 14:24
DX: K52.9 Noninfective gastroenteritis and colitis, unspecified (principal)
CPT/HCPCS: 36415; 80053; 83690; 84484; 85027; 93005; 93010; 99284-25; J7030; Q0162

== ENCOUNTER 2021-12-27 10:00 | Emergency (ER) | payer OTHER ==
[2021-12-27 10:38] VITALS: BP 126/77; PULSE 93; TEMP 97.9; BMI 30.2
[2021-12-27] MEDS ORDERED: LIDOCAINE 5% TOPICAL PATCH TP ONE (11:16)
[2021-12-27] MEDS ORDERED: LIDOCAINE 5% TOPICAL PATCH ONE (11:28)
[2021-12-27] MEDS ORDERED: LIDOCAINE PATCH REMOVAL MC SCH (22:00)
== END 2021-12-27 12:26 | disposition home or self-care (01) ==
LOC: JER 10:00
DX: M54.2 Cervicalgia (principal); M62.838 Other muscle spasm
CPT/HCPCS: 72125-TC; 99284-25

== ENCOUNTER 2022-06-07 16:28 | Emergency (ER) | payer OTHER ==
[2022-06-07 16:45] VITALS: BP 164/78; PULSE 78; TEMP 98.3; BMI 29.9
[2022-06-07] MEDS ORDERED: ASPIRIN 81 MG CHEWABLE TABLETS PO ONE (17:26)
[2022-06-07] MEDS ORDERED: ASPIRIN 81 MG CHEWABLE TABLETS ONE (17:56)
[2022-06-07 18:12] LABS: BASO % 0.6 % (0-2.0); EOS % 5.2 % (0-4.5); HEMATOCRIT 36.2 % (32.4-45.2); HEMOGLOBIN 11.9 GM/dL (10.7-15.3); LYMPH % 22.8 % (8-40); MCHC 32.8 g/dl (32.0-36.0); MEAN CELL VOLUME 82.4 fl (80-96); MEAN PLT VOLUME 8.4 fl (7.5-11.1); MONO % 9.3 % (3.8-10.2); NEUT % 62.1 % (42.8-82.8); PLATELET COUNT 293 10^3/uL (134-434); RDW 14.6 % (11.6-15.6)
[2022-06-07 18:32] LABS: CALCIUM 9.2 mg/dL (8.5-10.1)
[2022-06-07 18:33] LABS: BLOOD UREA NITROGEN 21.1 mg/dL (7-18); MAGNESIUM 2.2 mg/dL (1.8-2.4)
[2022-06-07 18:36] LABS: CREATININE 0.8 mg/dL (0.55-1.3)
[2022-06-07 18:38] LABS: BILIRUBIN,TOTAL 0.4 mg/dL (0.2-1); TOT PROT 6.8 g/dl (6.4-8.2)
[2022-06-07 18:41] LABS: N-TERMINAL BNP 243.1 pg/ml (5-125)
== END 2022-06-07 22:12 | disposition home or self-care (01) ==
LOC: JER 16:28
DX: F41.0 Panic disorder [episodic paroxysmal anxiety] (principal)
CPT/HCPCS: 36415; 71046-TC-FY; 80053; 83735; 83880; 84484; 85025; 93005; 93010; 99285-25

== ENCOUNTER 2022-06-15 10:13 | Emergency (ER) | payer OTHER ==
[2022-06-15 10:31] VITALS: BP 168/78; PULSE 105; RESP 16; TEMP 97.5
== END 2022-06-15 11:47 | disposition home or self-care (01) ==
LOC: JERFT 10:13
PROC: 0HQGXZZ Repair Left Hand Skin, External Approach (ICD-10-PCS; principal; 2022-06-15)
DX: S61.217A Laceration without foreign body of left little finger without damage to nail, initial encounter (principal)
CPT/HCPCS: 99283-25

== ENCOUNTER 2023-02-23 10:19 | Observation (INO) | payer OTHER ==
[2023-02-23] MEDS ORDERED: ACETAMINOPHEN 1000 MG/100 ML BAG IVPB ONE (10:43)
[2023-02-23] MEDS ORDERED: ONDANSETRON 4 MG/2 ML VIAL IVPUSH ONE (10:43)
[2023-02-23] MEDS ORDERED: SODIUM CHLORIDE 0.9% 500 ML INFUS.BAG IV ONE (10:43)
[2023-02-23] MEDS ORDERED: METOCLOPRAMIDE HCL INJECTION 10 MG/2 ML VIAL IVPB ONE (10:44)
[2023-02-23] MEDS ORDERED: METOCLOPRAMIDE HCL INJECTION 10 MG/2 ML VIAL ONE (11:06)
[2023-02-23] MEDS ORDERED: ACETAMINOPHEN INJECTION 100 ML IVPB ONE (11:06)
[2023-02-23] MEDS ORDERED: ONDANSETRON 4 MG/2 ML VIAL ONE (11:07)
[2023-02-23 11:44] LABS: BASO % 1.4 % (0-2.0); EOS % 4.4 % (0-4.5); HEMATOCRIT 37.2 % (32.4-45.2); LYMPH % 16.1 % (8-40); MCH 25.3 pg (25.7-33.7); MCHC 32.4 g/dl (32.0-36.0); MEAN CELL VOLUME 78.1 fl (80-96); MEAN PLT VOLUME 10.2 fl (7.5-11.1); MONO % 8.7 % (3.8-10.2); NEUT % 69.4 % (42.8-82.8); PLATELET COUNT 248 10^3/uL (134-434); RBC 4.76 M/mm3 (3.60-5.2); RDW 15.1 % (11.6-15.6); WHITE BLOOD COUNT 5.4 K/mm3 (4.0-10.0)
[2023-02-23 12:05] LABS: CALCIUM 9.5 mg/dL (8.5-10.1)
[2023-02-23 12:06] LABS: ALBUMIN 4.1 g/dl (3.4-5.0); MAGNESIUM 2.1 mg/dL (1.8-2.4)
[2023-02-23 12:07] LABS: BLOOD UREA NITROGEN 14.9 mg/dL (7-18)
[2023-02-23 12:09] LABS: CREATININE 0.9 mg/dL (0.55-1.3)
[2023-02-23 12:10] LABS: TOT PROT 7.5 g/dl (6.4-8.2)
[2023-02-23 12:12] LABS: BILIRUBIN,TOTAL 0.5 mg/dL (0.2-1)
[2023-02-23] MEDS ORDERED: ASPIRIN 81 MG CHEWABLE TABLETS PO ONE (12:51)
[2023-02-23] MEDS ORDERED: ASPIRIN 81 MG CHEWABLE TABLETS ONE (13:07)
[2023-02-23 13:54] LABS: PH,URINE 5.5 (5.0-8.0); URINE APPEARANCE CLEAR; URINE BILIRUBIN NEGATIVE (NEGATIVE); URINE COLOR YELLOW; URINE GLUCOSE (UA) NEGATIVE (NEGATIVE); URINE KETONE NEGATIVE (NEGATIVE); URINE LEUK ESTERASE NEGATIVE (NEGATIVE); URINE NITRITE NEGATIVE (NEGATIVE); URINE PROTEIN NEGATIVE (NEGATIVE); URINE UROBILINOGEN 0.2 mg/dL (0.2-1.0)
[2023-02-23] MEDS ORDERED: ATORVASTATIN CA 40 MG TABLET (FP) ONE (22:37)
[2023-02-23] MEDS ORDERED: HEPARIN NA (PORCINE) 5,000 UNITS/ML 1ML VIAL ONE (22:37)
[2023-02-23] MEDS: HEPARIN NA (PORCINE) 5,000 UNITS/ML 1ML VIAL SQ SCH (22:42)
[2023-02-23] MEDS: ATORVASTATIN CA 40 MG TABLET (FP) PO SCH (22:42)
[2023-02-24 07:45] LABS: EOS % 8.9 % (0-4.5); HEMATOCRIT 33.9 % (32.4-45.2); HEMOGLOBIN 11.1 GM/dL (10.7-15.3); LYMPH % 25.4 % (8-40); MCH 25.3 pg (25.7-33.7); MCHC 32.7 g/dl (32.0-36.0); MEAN CELL VOLUME 77.5 fl (80-96); MEAN PLT VOLUME 8.7 fl (7.5-11.1); MONO % 9.6 % (3.8-10.2); NEUT % 55.1 % (42.8-82.8); PLATELET COUNT 253 10^3/uL (134-434); RBC 4.37 M/mm3 (3.60-5.2); RDW 15.3 % (11.6-15.6); WHITE BLOOD COUNT 3.7 K/mm3 (4.0-10.0)
[2023-02-24 08:54] LABS: CALCIUM 9.3 mg/dL (8.5-10.1)
[2023-02-24 08:55] LABS: BLOOD UREA NITROGEN 14.1 mg/dL (7-18)
[2023-02-24 08:58] LABS: CREATININE 0.8 mg/dL (0.55-1.3)
[2023-02-24] MEDS ORDERED: ENALAPRIL MALEATE 10 MG TABLET PO SCH (10:00)
[2023-02-24] MEDS ORDERED: ASPIRIN COATED 81 MG TABLET.EC PO SCH (10:00)
[2023-02-24] MEDS ORDERED: LEVOTHYROXINE NA 125 MCG TABLET (FP) PO SCH (10:00)
[2023-02-24] MEDS ORDERED: metoPROLOL SUCCINATE 25 MG TAB.SR.24H (FP) PO SCH (10:00)
[2023-02-24] MEDS: LEVOTHYROXINE 112 MCG, LEVOTHYROXINE 25 MCG PO SCH (11:00)
[2023-02-24] MEDS ORDERED: ASPIRIN COATED 81 MG TABLET.EC ONE (13:12)
[2023-02-24] MEDS ORDERED: amLODIPine BESYLATE 5 MG TABLET (FP) ONE (13:12)
[2023-02-24] MEDS ORDERED: HEPARIN NA (PORCINE) 5,000 UNITS/ML 1ML VIAL ONE (13:12)
[2023-02-24] MEDS ORDERED: metoPROLOL SUCCINATE 25 MG TAB.SR.24H (FP) PO ONE ×2 (13:12→13:25)
[2023-02-24] MEDS ORDERED: ENALAPRIL MALEATE 5 MG TABLET ONE (13:17)
[2023-02-24] MEDS: HEPARIN NA (PORCINE) 5,000 UNITS/ML 1ML VIAL SQ SCH ×2 (13:32→23:24)
[2023-02-24] MEDS: ENALAPRIL MALEATE 10 MG TABLET PO SCH (13:33)
[2023-02-24] MEDS: amLODIPine BESYLATE 5 MG TABLET (FP) PO SCH (13:33)
[2023-02-24] MEDS ORDERED: ALBUTEROL SO4 HFA INHALER IH PRN (17:10)
[2023-02-24] MEDS ORDERED: ACETAMINOPHEN 500 MG TABLET (FP) PO PRN (17:19)
[2023-02-24] MEDS ORDERED: MELATONIN 1 MG TABLET PO SCH (22:00)
[2023-02-24] MEDS: ATORVASTATIN CA 40 MG TABLET (FP) PO SCH (23:25)
[2023-02-25 00:47] VITALS: BMI 29.9
[2023-02-25 03:41] VITALS: RESP 18
[2023-02-25] MEDS: LEVOTHYROXINE 112 MCG, LEVOTHYROXINE 25 MCG PO SCH (06:08)
[2023-02-25 07:50] LABS: HEMATOCRIT 34.1 % (32.4-45.2); HEMOGLOBIN 11.3 GM/dL (10.7-15.3); MCH 25.6 pg (25.7-33.7); MCHC 33.2 g/dl (32.0-36.0); MEAN CELL VOLUME 77.1 fl (80-96); MEAN PLT VOLUME 9.5 fl (7.5-11.1); PLATELET COUNT 268 10^3/uL (134-434); RBC 4.43 M/mm3 (3.60-5.2); RDW 14.9 % (11.6-15.6); WHITE BLOOD COUNT 4.4 K/mm3 (4.0-10.0)
[2023-02-25 09:03] LABS: ALBUMIN 3.3 g/dl (3.4-5.0); BLOOD UREA NITROGEN 17.8 mg/dL (7-18); CALCIUM 9.1 mg/dL (8.5-10.1); MAGNESIUM 2.3 mg/dL (1.8-2.4)
[2023-02-25 09:06] LABS: CREATININE 0.7 mg/dL (0.55-1.3); PHOSPHOROUS 3.8 mg/dL (2.5-4.9)
[2023-02-25 09:08] LABS: TOT PROT 6.3 g/dl (6.4-8.2)
[2023-02-25 09:17] LABS: BILIRUBIN,TOTAL 0.4 mg/dL (0.2-1)
[2023-02-25] MEDS ORDERED: REGADENOSON 0.4 MG/5 ML PRE-FILLED SYRINGE IVPUSH ONE ×2 (09:31→09:45)
[2023-02-25] MEDS ORDERED: ASPIRIN 81 MG CHEWABLE TABLETS PO SCH (10:00)
[2023-02-25] MEDS ORDERED: metoPROLOL SUCCINATE 25 MG TAB.SR.24H (FP) PO SCH (10:00)
[2023-02-25] MEDS: amLODIPine BESYLATE 5 MG TABLET (FP) PO SCH (11:25)
[2023-02-25] MEDS: HEPARIN NA (PORCINE) 5,000 UNITS/ML 1ML VIAL SQ SCH (11:26)
[2023-02-25] MEDS: ENALAPRIL MALEATE 10 MG TABLET PO SCH (11:26)
[2023-02-25 15:54] VITALS: BP 115/60; PULSE 89; TEMP 98
== END 2023-02-25 16:55 | disposition home or self-care (01) ==
LOC: JER 10:19 → JERBED 13:18 → J4S 02-24 21:46
PROVIDERS: ADMIT Internal Medicine; ATTEND Internal Medicine
PROC: 3E033NZ Introduction of Analgesics, Hypnotics, Sedatives into Peripheral Vein, Percutaneous Approach (ICD-10-PCS; principal; 2023-02-23)
PROC: 3E023GC Introduction of Other Therapeutic Substance into Muscle, Percutaneous Approach (ICD-10-PCS; 2023-02-23)
PROC: 3E033GC Introduction of Other Therapeutic Substance into Peripheral Vein, Percutaneous Approach (ICD-10-PCS; 2023-02-23)
PROC: 3E0337Z Introduction of Electrolytic and Water Balance Substance into Peripheral Vein, Percutaneous Approach (ICD-10-PCS; 2023-02-23)
DX: I16.0 Hypertensive urgency (principal); E78.5 Hyperlipidemia, unspecified; E11.9 Type 2 diabetes mellitus without complications; R07.9 Chest pain, unspecified; R51.9 Headache, unspecified; E03.9 Hypothyroidism, unspecified; R77.8 Other specified abnormalities of plasma proteins; E66.9 Obesity, unspecified; Z68.30 Body mass index [BMI] 30.0-30.9, adult; Z87.891 Personal history of nicotine dependence
CPT/HCPCS: 0241U-QW; 36415; 70450-TC; 71045-TC-FY; 78452-TC; 80048; 80053; 80061; 81003; 82550; 82962; 83036; 83690; 83735; 84100; 84443; 84484; 85025; 85027; 87086; 93005; 93010; 93017; 93306-TC; 99285-25; A9502; G0378; J1644; J2785

== ENCOUNTER 2023-06-08 08:11 | Emergency (ER) | payer OTHER ==
[2023-06-08 08:20] VITALS: BP 153/71; PULSE 104; RESP 18; TEMP 98.4; BMI 32.4
== END 2023-06-08 10:11 | disposition home or self-care (01) ==
LOC: JER 08:11
DX: M79.645 Pain in left finger(s) (principal); R22.32 Localized swelling, mass and lump, left upper limb; M79.604 Pain in right leg; M67.442 Ganglion, left hand
CPT/HCPCS: 73130-TC-LT-FY; 99283-25

== ENCOUNTER 2023-08-23 17:24 | Emergency (ER) | payer OTHER ==
[2023-08-23 17:29] VITALS: BP 130/64; PULSE 95; RESP 18; TEMP 99; BMI 34.0
== END 2023-08-23 19:30 | disposition home or self-care (01) ==
LOC: JERFT 17:24
DX: M25.572 Pain in left ankle and joints of left foot (principal); R22.42 Localized swelling, mass and lump, left lower limb; M19.072 Primary osteoarthritis, left ankle and foot
CPT/HCPCS: 73610-TC-LT-FY; 99283-25

== ENCOUNTER 2024-05-06 08:10 | Observation (INO) | payer OTHER ==
[2024-05-06 09:35] LABS: HEMATOCRIT 19.8 % (32.4-45.2); MCHC 29.6 g/dl (32.0-36.0); MEAN CELL VOLUME 60.5 fl (80-96); MEAN PLT VOLUME 8.2 fl (7.5-11.1); PLATELET COUNT 259 10^3/uL (134-434); RBC 3.28 M/mm3 (3.60-5.2); RDW 19.2 % (11.6-15.6); WHITE BLOOD COUNT 4.5 K/mm3 (4.0-10.0)
[2024-05-06 09:36] LABS: MCH 17.9 pg (25.7-33.7)
[2024-05-06 09:38] LABS: HEMOGLOBIN 5.9 GM/dL (10.7-15.3)
[2024-05-06 09:49] LABS: POTASSIUM 4.4 mmol/L (3.5-5.1)
[2024-05-06 09:51] LABS: ALBUMIN 3.8 g/dl (3.4-5.0); BLOOD UREA NITROGEN 21.6 mg/dL (7-18); CALCIUM 8.7 mg/dL (8.5-10.1)
[2024-05-06 09:54] LABS: CREATININE 0.9 mg/dL (0.55-1.3)
[2024-05-06 09:56] LABS: BILIRUBIN,TOTAL 0.9 mg/dL (0.2-1); TOT PROT 6.6 g/dl (6.4-8.2)
[2024-05-06 11:21] LABS: PROTHROMBIN TIME (PATIENT) 11.3 SEC (9.7-13.0)
[2024-05-06 12:20] LABS: RETICULOCYTES 1.12 % (0.5-1.5)
[2024-05-06] MEDS ORDERED: ALBUTEROL SO4 HFA INHALER IH PRN (12:32)
[2024-05-06] MEDS: prednisoLONE ACETATE 1% OPHTH SUSP 5 ML BOTTLE OU SCH (14:54)
[2024-05-06] MEDS: INSULIN ASPART SLIDING SCALE (NOVOLOG) 1 VIAL SQ SCH (18:03)
[2024-05-06 19:46] LABS: HEMATOCRIT 25.9 % (32.4-45.2); HEMOGLOBIN 7.8 GM/dL (10.7-15.3); MCHC 30.3 g/dl (32.0-36.0); MEAN CELL VOLUME 64.8 fl (80-96); MEAN PLT VOLUME 8.2 fl (7.5-11.1); PLATELET COUNT 242 10^3/uL (134-434); RBC 3.99 M/mm3 (3.60-5.2); RDW 23.7 % (11.6-15.6); WHITE BLOOD COUNT 3.3 K/mm3 (4.0-10.0)
[2024-05-06 19:54] LABS: MCH 19.6 pg (25.7-33.7)
[2024-05-06] MEDS ORDERED: amLODIPine BESYLATE 5 MG TABLET (FP) ONE (22:26)
[2024-05-06] MEDS ORDERED: ATORVASTATIN CA 40 MG TABLET (FP) ONE (22:27)
[2024-05-06] MEDS: ATORVASTATIN CA 40 MG TABLET (FP) PO SCH (22:33)
[2024-05-06] MEDS: amLODIPine BESYLATE 5 MG TABLET (FP) PO SCH (22:33)
[2024-05-07] MEDS: LEVOTHYROXINE NA 112 MCG TABLET (FP) PO SCH (06:44)
[2024-05-07 06:51] LABS: HEMATOCRIT 28.4 % (32.4-45.2); HEMOGLOBIN 8.8 GM/dL (10.7-15.3); MCH 20.2 pg (25.7-33.7); MCHC 31.1 g/dl (32.0-36.0); MEAN CELL VOLUME 64.9 fl (80-96); MEAN PLT VOLUME 8.5 fl (7.5-11.1); PLATELET COUNT 264 10^3/uL (134-434); RBC 4.38 M/mm3 (3.60-5.2); RDW 23.7 % (11.6-15.6); WHITE BLOOD COUNT 3.6 K/mm3 (4.0-10.0)
[2024-05-07 07:10] LABS: POTASSIUM 4.6 mmol/L (3.5-5.1)
[2024-05-07 07:12] LABS: CALCIUM 8.9 mg/dL (8.5-10.1)
[2024-05-07 07:13] LABS: ALBUMIN 3.6 g/dl (3.4-5.0); BLOOD UREA NITROGEN 11.1 mg/dL (7-18)
[2024-05-07 07:16] LABS: CREATININE 0.7 mg/dL (0.55-1.3)
[2024-05-07 07:18] LABS: BILIRUBIN,TOTAL 0.6 mg/dL (0.2-1); TOT PROT 6.4 g/dl (6.4-8.2)
[2024-05-07] MEDS: ENALAPRIL MALEATE 10 MG TABLET PO SCH (10:26)
[2024-05-07] MEDS: metoPROLOL SUCCINATE 25 MG TAB.SR.24H (FP) PO SCH (10:26)
[2024-05-07] MEDS: IRON SUCROSE INJECTION 200 MG in SODIUM CHLORIDE 100 ML IVPB ONE (11:28)
[2024-05-07] MEDS: DEXTROSE 5%-NORMAL SALINE 1,000 ML IV SCH (12:07)
[2024-05-07] MEDS: DEXTROSE 50%-WATER 25 GM/50 ML DISP.SYRIN IVPUSH ONE (12:15)
[2024-05-07 12:22] VITALS: BMI 28.8
[2024-05-07 14:11] VITALS: PULSE 79
[2024-05-07 14:30] VITALS: TEMP 98.2
[2024-05-07] MEDS: PANTOPRAZOLE 40 MG TABLET PO SCH (16:59)
[2024-05-07 18:13] VITALS: BP 165/77; RESP 18
[2024-05-08] MEDS ORDERED: FERROUS SO4 325 MG TABLET (FP) PO SCH (08:00)
== END 2024-05-07 19:01 | disposition home or self-care (01) ==
LOC: JER 08:10 → JERBED 11:56 → J7W 05-07 06:33
PROVIDERS: ADMIT Internal Medicine; ATTEND Internal Medicine
PROC: 3E0337Z Introduction of Electrolytic and Water Balance Substance into Peripheral Vein, Percutaneous Approach (ICD-10-PCS; principal; 2024-05-06)
PROC: 30233N1 Transfusion of Nonautologous Red Blood Cells into Peripheral Vein, Percutaneous Approach (ICD-10-PCS; 2024-05-06)
PROC: 0DJ08ZZ Inspection of Upper Intestinal Tract, Via Natural or Artificial Opening Endoscopic (ICD-10-PCS; 2024-05-07)
PROC: 0DB68ZX Excision of Stomach, Via Natural or Artificial Opening Endoscopic, Diagnostic (ICD-10-PCS; 2024-05-07)
DX: K29.70 Gastritis, unspecified, without bleeding (principal); D64.89 Other specified anemias; I10 Essential (primary) hypertension; E78.5 Hyperlipidemia, unspecified; R01.1 Cardiac murmur, unspecified; K59.00 Constipation, unspecified; E11.9 Type 2 diabetes mellitus without complications; E03.9 Hypothyroidism, unspecified
CPT/HCPCS: 36415; 36430; 71045-TC-FY; 80053; 82272; 82607; 82728; 82746; 82962; 83036; 83540; 83550; 84466; 84484; 85027; 85045; 85610; 86850; 86900; 86901; 86922; 88305-TC; 88342-TC; 93005; 93010; 99285-25; G0378; J1756; P9038; P9058

== ENCOUNTER 2024-09-09 04:52 | Day surgery (SDC) | payer OTHER ==
[2024-08-25 10:07] VITALS: BMI 31.1
[2024-09-09 08:37] VITALS: BP 140/58; PULSE 73; RESP 16; TEMP 98.4
== END 2024-09-09 09:10 | disposition home or self-care (01) ==
LOC: JASU-ENDO 04:52
PROVIDERS: ATTEND Internal Medicine Gastroenterology
PROC: 0DJD8ZZ Inspection of Lower Intestinal Tract, Via Natural or Artificial Opening Endoscopic (ICD-10-PCS; principal; 2024-09-09 08:00)
DX: K57.30 Diverticulosis of large intestine without perforation or abscess without bleeding (principal); D50.9 Iron deficiency anemia, unspecified